=== PATIENT | female | born 1985 | race Caucasian/White ===

== ENCOUNTER 2017-09-21 19:07 | Emergency (ER) | payer MEDICAID ==
[~2017-09-21] VITALS: Ht 167.6 cm; Wt 59.4 kg
[2017-09-21 19:35] VITALS: Ht 167.6 cm; Wt 59.4 kg
[2017-09-21 22:07] VITALS: BP 98/73
== END 2017-09-21 22:07 | disposition home or self-care (01) ==
LOC: ED 19:07
DX: S61.412A Laceration without foreign body of left hand, initial encounter (principal); W26.8XXA Contact with other sharp object(s), not elsewhere classified, initial encounter; Y93.89 Activity, other specified; Y92.89 Other specified places as the place of occurrence of the external cause; Y99.8 Other external cause status
CPT/HCPCS: J2001

== ENCOUNTER 2017-10-01 19:53 | Emergency (ER) | payer MEDICAID ==
[2017-10-01 20:21] VITALS: Ht 167.6 cm
[2017-10-01 22:06] VITALS: BP 120/68
== END 2017-10-01 22:06 | disposition home or self-care (01) ==
LOC: ED 19:53
DX: S61.412D Laceration without foreign body of left hand, subsequent encounter (principal); X58.XXXD Exposure to other specified factors, subsequent encounter